=== PATIENT | male | born 1955 | race Caucasian/White ===

== ENCOUNTER → 2017-07-06 | Outpatient (CLI) | payer BC, OTHER ==
[~2017-07-06] VITALS: Ht 185.4 cm; Wt 83.9 kg
[~2017-07-06] MED LIST: AMITRIPTYLINE H10 M3 PO; ASPIR 8181 MG PO; CRESTOR40 MG PO; LISINOPRIL5 MG PO; PLAVIX 75 MG TA75 M1 PO; PROTONIX40 M1 PO; TOPROL XL25 MG PO; XANAX 0.5 MG0.5 MG PO; ZANAFLEX4 MG PO; ZOLOFT100 MG PO
--- NOTE | ~2017-07-06 | CATHLAB ---
[facility] [place] [address] INVASIVE PROCEDURE REPORT Name: JANE HERNANDEZ Room #: REG Adrian#: [id number] Admission: 07/06/17 Attend Phys: Basil Rockwell, Discharge: Date of : 57 Date of Service: 07/08/17 1844 Report #: [id number] THIS REPORT FOR: //name// APPROVED REPORT Study performed: 07/06/2017 07:47:06 Patient Details Patient Status: Out-Patient Room #: The patient is a 61 year-old male Event Personnel Basil Rockwell Submarine Operator, Neelam Salinas RN RN, Anand Hedrick Greenwood, Christine RTR Monitor, Claudia Martin RTR, COREMAKER EXPERIMENTAL Monitor, Madelin Thompson RN rewinder operator Performed Art Access - R femoral artery* 47816 Initial Mod Sed Same Phys/QHP Gr5y 387925 Left Heart Cath w/or w/o Coronaries [id number] Hemostasis w/ Mynx Renal Bilateral Peripheral Angiography 6908486 CVRENALBIL Indication Positive stress test Procedure Narrative The Right Groin^ was infiltrated with 1% Lidocaine subcutaneous anesthesia. A PINNACLE 6FR Sheath #[id number] sheath was inserted into the RFA^. Coronary angiography was performed using coronary diagnostic catheters. The right coronary system was accessed and visualized with a JR4 catheter. The left coronary system was accessed and visualized with a JL4 catheter. The left ventricle was accessed and visualized with a Pigtail catheter. Left ventriculogram was performed in 30 degree projection. An aortogram of the abdominal aorta was performed. Pre-demployment femoral angiogram was performed . Closure device was deployed with a 6 Fr MYNXGRIP 6/7F #[id number]. The patient tolerated the procedure well and there were no complications associated with the procedure. There was no hematoma. Intraoperative Conscious Sedation Sedation start time: 08:30 Case end Time: 08:50 Fentanyl 50 mcg Versed 2 mg Fluoro Time: 2.07 minutes [facility] [address] [place] [address] INVASIVE PROCEDURE REPORT Name: JANE HERNANDEZ WELCH Room #: [facility] Adrian#: [id number] Admission: 07/06/17 Attend Phys: Basil Rockwell, Discharge: Date of : 57 Date of Service: 07/08/17 1844 Report #: [id number] Dose: DAP 3603.70 cGycm2 401 mGy Contrast Type and Amount: Omnipaque 110 ml Hemodynamics The aortic pressure is 152/85 mmHg with a mean of 110 mmHg. The left ventricular pressure is 147/7 mmHg with a mean of mmHg. The left ventricular end diastolic pressure is 23 mmHg. Conclusion #1 left main large free of disease giving rise to LAD and circumflex #2 LAD extends to the apex with diffuse distal disease eccentric lesion of 40-50% mid vessel after diagonal takeoff. No high-grade occlusive disease #3 circumflex OM is nondominant the first OM branch is subtotally occluded in approximately a 1.5-20 vessel. It fills slowly via antegrade filling this is very similar doing parents from cardiac catheterization 9 years ago. #4 dominant right coronary proximal calcification with mild disease throughout is anatomically dominant. #5 selective renal angiography a dual supply to the left kidney is single right kidney artery with mild disease Indications and plan: Aggressive risk factor modification. No current indication for intervention. The circumflex OM branch was subtotally occluded 9 years ago he's asymptomatic. Small-caliber vessel no significant benefit and intervention. No other sniff can progression is noted. Continue aggressive risk factor modification follow-up will be arranged. No lifting for 48 hours no line tub Jacuzzi or Fox for one-week. <ELECTRONICALLY SIGNED> By: Basil Rockwell MD, FACC 07/08/171843 43 43 Basil Rockwell MD, FACC /INF
--- NOTE | ~2017-07-06 | DSS ---
[facility] [place] [address] [place] [address] SHORT STAY SUMMARY Name: JANE HERNANDEZ Room #: REG ALVAREZ Casiano.#: [id number] Admission: 07/06/17 Attend Phys: Basil Rockwell MD, Discharge: Date of : 57 Report #: [id number] THIS REPORT FOR: //name// CC: STEVEN FRANZ FAM unknown Basil Rokcwell DATE OF SERVICE: 07/06/2017 HISTORY OF PRESENT ILLNESS: The patient is a 61-year-old male who was admitted for cardiac catheterization. He has not had much in the way of any anginal type symptoms. He has known proximally occluded circ OM branch, subtotally occluded, which was filling back in 2008. Mild RCA disease, moderate LAD disease. Nuclear stress testing suggested some possible inferior lateral ischemia and some questionable anterior, this is consistent with the OM branch and was concerned about progression of the LAD. The patient has also had a prior right carotid stent and a 60% left carotid. We have been following. He has done well. He is not having much in the way of anginal symptoms, as stated. He has been compliant with his medications These have included Xanax, Elavil, baby aspirin, Plavix, lisinopril 5 mg, metoprolol 25, Protonix, Crestor 20, Zanaflex and Zoloft. PAST MEDICAL HISTORY: Positive for coronary artery disease, a right carotid stent, left carotid 60%, anxiety disorder, hypertension, hypercholesterolemia, COPD. SOCIAL HISTORY: He has an alternative lifestyle. He smokes a pack a day, some moderate alcohol use. He is accompanied by his partner and his mother. FAMILY HISTORY: Father had heart attack prematurely. ALLERGIES: SULFA ANTIBIOTICS. REVIEW OF SYSTEMS: Essentially negative except for some occasional nocturia. As stated above. PHYSICAL EXAMINATION: VITAL SIGNS: Blood pressure 136/86, pulse of 80 and regular. HEENT: Eyes reveal xanthelasmas. Pharynx is clear. NECK: Shows preserved upstrokes and left-sided bruit. LUNGS: Clear, prolonged expiratory phase. CARDIOVASCULAR: Regular rate and rhythm, S1, S2. ABDOMEN: Soft. No HSM or abdominal bruit. EXTREMITIES: Reveal no edema. Distal pulses were intact. NEUROLOGIC: Nonfocal. SKIN: Warm and dry without xanthoma or ulcer. [facility] [address] [place] [address] SHORT STAY SUMMARY Name: JANE HERNANDEZ RAMSAY Room #: REG ALVAREZ Casiano.#: [id number] Admission: 07/06/17 Attend Phys: Basil Rockwell MD, Discharge: Date of : 57 Report #: [id number] MUSCULOSKELETAL: No gross joint deformity. HOSPITAL COURSE: The patient was subsequently taken to the catheterization lab, which revealed a false first OM branch to be subtotally occluded, but still filling. This is very similar to what it looked like in 2008 at the last cardiac catheterization. 40-50% LAD diagonal lesions, which have not significantly changed. There is moderate calcification, mild progression in the mid RCA 30-40%. LV function is preserved. It appeared there was a left renal artery stenosis; however, I selectively injected this, and there was only minimal disease, and there was a dual supply to the left kidney and a single right kidney area that was widely patent. The patient has a closure device placed, will run continued IV fluids and discharge protocol later today. He will resume home medications. No lifting for 48 hours. No lying in tub, Jacuzzi or bojorquez for a week. ASSESSMENT: 1. Coronary artery disease with minimal progression as noted above, subtotally occluded circ OM, unchanged from 2009 cath, preserved left ventricular function. 2. Hypertension. 3. Hypercholesterolemia. 4. Chronic obstructive pulmonary disease, continued tobacco use. 5. Anxiety disorder. RECOMMENDATIONS AND PLAN: As stated above. I will followup scheduled with myself in 6 months and followup with Dr. Franz as scheduled. By: [id number] Basil Rockwell MD, FACC /nt
--- NOTE | ~2017-07-06 | EKG ---
[place] [address] [facility] [email or web address] [address] ELECTROCARDIOGRAM REPORT Name: JANE HERNANDEZ [facility] [place] [id number] Admission: 07/06/17 Attend Phys: Basil Rockwell MD, Discharge: Date of : 57 Report #: [id number] THIS REPORT FOR: //name// [facility] Test Date: 2017-07-06 Test Time: 07:53:17 Pat Name: JANE HERNANDEZ Department: Room: Gender: M Latex Spooler: Sunday TURCIOS : 1955 Requested By: Basil Rockwell Order Number: [id number] MD: Ziyad Main Measurements Intervals [place] Rate: 85 P: 29 NH: 154 QRS: 11 QRSD: 98 T: 92 QT: 378 QTc: 450 Interpretive Statements Sinus rhythm No significant abnormality Compared to ECG 02/22/2008 06:37:50 Sinus bradycardia no longer present T-wave abnormality no longer present Electronically Signed On 07-06-2017 8:51:40 CDT by Ziyad Main [email or web address] <ELECTRONICALLY SIGNED> By: Ziyad Main MD, [facility] 07/06/17 0851 [phone] Ziyad Main MD, [facility] /EPI
[2017-07-06 07:31] VITALS: BP 150/94
== END | disposition home or self-care (01) ==
LOC: CATH 07:08
DX: I25.10 Atherosclerotic heart disease of native coronary artery without angina pectoris (principal); I10 Essential (primary) hypertension; J44.9 Chronic obstructive pulmonary disease, unspecified; E78.5 Hyperlipidemia, unspecified; F32.9 Major depressive disorder, single episode, unspecified; F41.9 Anxiety disorder, unspecified; F17.210 Nicotine dependence, cigarettes, uncomplicated; Z86.73 Personal history of transient ischemic attack (TIA), and cerebral infarction without residual deficits; Z95.5 Presence of coronary angioplasty implant and graft; Z98.890 Other specified postprocedural states; Z79.82 Long term (current) use of aspirin; Z79.899 Other long term (current) drug therapy; Z88.2 Allergy status to sulfonamides